=== PATIENT | male | born 1995 | race African-American/Black ===

== ENCOUNTER 2019-09-26 08:01 | Day surgery (SDC) | payer OTHER ==
[2019-09-26] VITALS (9 sets, daily range): BP systolic 119–169; BP diastolic 65–90
[~2019-09-26] VITALS: Ht 175.3 cm; Wt 95.3 kg
--- NOTE | 2019-09-26 07:56 | Operative Note - PDOC ---
Operative Note Operative Note Pre-op Diagnosis: sp orif left humerus with painful hardware Procedure: see op report Post-op Diagnosis: same as pre-op plus Operative Findings: consistent w/pre-op dx studies Anesthesia: regional Specimen: none Complications: none Condition: stable Estimated Blood Loss: none Implant(s) used?: No Osmani Lowe MD September 26, 2019 07:56
--- NOTE | 2019-09-26 07:56 | Pre-Procedure Note/Attestation ---
Pre-Procedure Note/Attestation Complete Prior to Procedure Planned Procedure: left Procedure Narrative: painful hardware Indications for Procedure Pre-Operative Diagnosis: sp orif left humerus with painful hardware Attestation I attest that I discussed the nature of the procedure; its benefits; risks and complications; and alternatives (and the risks and benefits of such alternatives ), prior to the procedure, with the patient (or the patient's legal mortician supplies sales representative). I attest that, if there was a reasonable possibility of needing a blood transfusion, the patient (or the patient's legal mortician supplies sales representative) was given the [facility] standardized written summary, pursuant to the Rosalino Julián Blood Safety Act ([place] Health and Safety Code # 1645, as amended). I attest that I re-evaluated the patient just prior to the surgery and that there has been no change in the patient's H&P, except as documented below: Osmani Lowe MD September 26, 2019 07:56
[~2019-09-26 08:01] MED LIST: D5 1/2NS 1,000 ML IV SCH; HYDROcodone/Acetamin 5/325 tab ORAL PRN; HYDROmorphone 1mg/ml Carpuject SUBQ PRN; Tylenol #3 tab (300mg/30mg) ORAL PRN; ceFAZolin 1gm IVPB IVPB ONE; celeBREX 200mg Cap **SURGERY PATIENTS ONLY ORAL ONE; oxyCONTIN 20mg tab ORAL ONE
[2019-09-26] MEDS ORDERED: oxyCONTIN 20mg tab ORAL ONE (08:41)
[2019-09-26] MEDS ORDERED: celeBREX 200mg Cap **SURGERY PATIENTS ONLY ORAL ONE (08:41)
[2019-09-26] MEDS ORDERED: Bacitracin 50000 Units Vial ONE (11:31)
[2019-09-26] MEDS ORDERED: NeoSporin Gu Irrig 1ml Amp IRRIG ONE (11:31)
[2019-09-26] MEDS ORDERED: Rocuronium Bromide 100mg/10ml Inj IV ONE (11:31)
[2019-09-26] MEDS ORDERED: Bupivacaine 0.25% Inj 30ml INJ ONE (11:35)
[2019-09-26] MEDS ORDERED: fentaNYL 100 mcg/2 mL IV ONE (12:16)
[2019-09-26] MEDS ORDERED: Midazolam 2mg/2ml Inj ONE (12:16)
[2019-09-26] MEDS ORDERED: NS Irrig 1000ml IRRIG ONE ×2 (12:50→13:54)
[2019-09-26] MEDS ORDERED: Morphine Sulfate 10mg/ml Inj ONE (12:52)
[2019-09-26] MEDS ORDERED: Metoclopramide 10mg/2ml Inj ONE (13:17)
[2019-09-26] MEDS ORDERED: Ropivacaine 5mg/ml Vial 20ml INJ ONE (13:17)
[2019-09-26] MEDS ORDERED: Lidocaine 1% MPF 10mg/ml 5ml ONE (13:17)
--- NOTE | 2019-09-26 13:26 | Anethesia Preoperative Eval ---
Anesthesia Pre-op PMH/ROS General Date of Evaluation: September 26, 2019 Time of Evaluation: 12:00 Anesthesiologist: samantha ASA Score: ASA 2 Mallampati Score Class I : Soft palate, uvula, fauces, pillars visible Class II: Soft palate, uvula, fauces visible Class III: Soft palate, base of uvula visible Class IV: Only hard plate visible Mallampati Classification: Class II Surgeon: yamilet Diagnosis: hardware removal Surgical Procedure: surgical removal of hardware left distal Anesthesia History: none Family History: no anesthesia problems Allergies: Coded Allergies: No Known Allergies (Unverified , 09/25/19) Medications: see eMAR Patient NPO?: Yes NPO Date: September 26, 2019 NPO Time: 00:01 Past Medical History Cardiovascular: Denies: HTN, CAD, [place], valve dz, arrhythmia, other Pulmonary: Denies: asthma, COPD, BRAD, other Gastrointestinal/Genitourinary: Denies: GERD, CRI, ESRD, other Neurologic/Psychiatric: Denies: dementia, CVA, depression/anxiety, TIA, other Endocrine: Denies: DM, hypothyroidism, steroids, other HEENT: Denies: cataract (L), cataract (R), glaucoma, [place] (R[place] other Hematology/Immune: Denies: anemia, DVT, bleeding disorder, other Musculoskeletal/Integumentary: Denies: OA, RA, DJD, DDD, edema, other Other: obesity PSxH Narrative: arm surgery Anesthesia Pre-op Phys. Exam Physician Exam Last Vital Signs Date Time Temp Pulse Resp B/P (MAP) Pulse Ox O2 Delivery O2 Flow Rate FiO2 09/26/19 08:34 Room Air 09/26/19 08:29 97.5 57 18 119/72 97 Constitutional: NAD Neurologic: CN 2-12 intact Cardiovascular: RRR Respiratory: CTA Gastrointestinal: S/NT/ND Airway Exam Mallampati Classification 2 Mallampati Score: Class II MO: full ROM: full Dentures: no upper, no lower Anesthesia Pre-op A/P Studies Pre-op Studies: EKG - SR Risk Assessment & Plan Assessment: covid neg Plan: general and Peripheral block Status Change Before Surgery: No Pre-Antibiotics Drug: ancef Given Within 1 Hr of Incision: Yes Time Given: 12:30 Ramila Calles CRNA September 26, 2019 13:26
[2019-09-26] MEDS ORDERED: Hydromorphone 0.5mg/0.5ml inj IVP PRN (13:30)
[2019-09-26] MEDS ORDERED: fentaNYL 100 mcg/2 mL IV PRN (13:30)
[2019-09-26] MEDS ORDERED: DiphenhydrAMINE 50mg/ml Inj IVP PRN (13:30)
[2019-09-26] MEDS ORDERED: Hydrogen Peroxide 473ml Bottle TOPIC ONE (13:53)
--- NOTE | 2019-09-26 14:29 | Immediate Post-Op Evaluation ---
Immediate Post-Op Evalulation Immediate Post-Op Evalulation Procedure: hardware removal disal radius left Date of Evaluation: September 26, 2019 Time of Evaluation: 14:28 IV Fluids: 600 Blood Pressure Systolic: 145 Blood Pressure Diastolic: 70 Pulse Rate: 65 Respiratory Rate: 14 O2 Sat by Pulse Oximetry: 99 Temperature (Fahrenheit): 97.6 Nausea: No Vomiting: No Complications none Patient Status: awake, reacts, patent Hydration Status: adequate Drug: ancef Given Within 1 Hr of Incision: Yes Time Given: 12:30 Ramila Calles CRNA September 26, 2019 14:29
--- NOTE | 2019-09-26 18:45 | Operative Note - Dictated ---
DATE OF OPERATION: 09/26/2019 PREOPERATIVE DIAGNOSES: 1. Status post ORIF left distal humerus fracture. 2. Left humerus painful hardware. 3. Hypertrophic scar left elbow. POSTOPERATIVE DIAGNOSES: 1. Status post ORIF left distal humerus fracture. 2. Left humerus painful hardware. 3. Hypertrophic scar left elbow. PROCEDURE: 1. Removal of buried hardware, 1 plate, 9 screws left distal humerus. 2. Revision of 20 cm hypertrophic scar, left elbow. SURGEON: Osmani Lowe MD. ANESTHESIA: General. INDICATION FOR PROCEDURE: The patient is a pleasant 23-year-old gentleman, who sustained a significant injury to his left elbow. He subsequently underwent open reduction and internal fixation. He had continued pain in the posterior aspect of the left elbow. [place] that now the fracture has healed, may be related to be irritation from the hardware. He was indicated of operative fixation with removal of the hardware. He had hypertrophic scar as well. Therefore, excision and scar revision was also consented for. Risks, limitations, expectations, complications of procedure were discussed in detail. All questions addressed. DESCRIPTION OF PROCEDURE: After informed consent was obtained, patient was brought to the operating room. Patient was placed under general anesthesia. Patient was then carefully placed in the prone position. Left arm was prepped and draped in a sterile manner. Time-out was performed. A previous skin incision was marked out. Keloid was coaxed out. Blunt subcutaneous dissection down to the triceps fascia was performed. The triceps splitting approach was performed. The distal column of the plate was identified and dissection proximally and distally. The screws were removed along with the plate. The wound was copiously irrigated. The scar was revised using #1 Vicryl, 2-0 Vicryl, 3-0 Vicryl, and 3-0 Monocryl sutures. Dermabond and compression dressing was applied. Patient was awoken and taken to recovery room with stable vital signs. ESTIMATED BLOOD LOSS: None. COMPLICATIONS: None. SPECIMENS: None. EXPLANTS: Include 1 plate with 9 screws. Osmani Lowe M.D. DR: NEL JOB#: [id number] CC:
[2019-09-30 13:21] VITALS: BP 140/78
--- NOTE | 2019-09-30 13:21 | 48 Hour Post Anesthesia Eval ---
Post Anesthesia Evaluation Procedure: hardware removal disal radius left Date of Evaluation: September 30, 2019 Time of Evaluation: 13:20 Blood Pressure Systolic: 140 0: 78 Pulse Rate: 70 Respiratory Rate: 15 O2 Sat by Pulse Oximetry: 98 Airway: patent Nausea: No Vomiting: No Pain Intensity: 0 Hydration Status: adequate Mental Status/LOC: patient returned to baseline Post-Anesthesia Complications: none Follow-up care needed: N/A Ramila Calles CRNA September 30, 2019 13:21
== END 2019-09-26 16:00 | disposition home or self-care (01) ==
LOC: SUR 08:01
DX: T85.848A Pain due to other internal prosthetic devices, implants and grafts, initial encounter (principal); L91.0 Hypertrophic scar; X58.XXXA Exposure to other specified factors, initial encounter; Y92.9 Unspecified place or not applicable; E66.9 Obesity, unspecified; Z68.31 Body mass index [BMI] 31.0-31.9, adult
CPT/HCPCS: 13121; 13122; 20680; J2250; J2270; J2405; J2704; J2765; J2795; J3010; J3490